=== PATIENT | female | born 1995 | race Caucasian/White ===

== ENCOUNTER 2023-05-24 08:49 | Emergency (ER) | payer OTHER, MEDICAID, SELFPAY ==
[2023-05-24 08:55] VITALS: BP 144/93; PULSE 95; RESP 18; TEMP 37.2; O2SAT 98; BMI 22.3
--- NOTE | 2023-05-24 09:50 | ED.DENTAL ---
HPI - Dental/Oral General Chief complaint: Dental/Oral Stated complaint: R/bottom tooth abcess Time Seen by Provider: 05/24/23 09:21 Source: patient Mode of arrival: Ambulatory History of Present Illness HPI Narrative: Patient is a healthy 28-year-old female who presents today with dental pain. She reports that she has a fracture to down to the gum line it has been there for few months not been causing problems and new usually pain is controlled with Tylenol ibuprofen. She is trying to get into a dentist she her baby and are living at [facility]. She is been taking ibuprofen they called an emergency dental place who recommended she get antibiotics before they see her. She denies any fever chills or swelling of face. Related Data Previous Rx's Medication Instructions Recorded clindamycin HCl 300 mg capsule 300 mg PO TID #21 caps 05/24/23 Allergies Allergy/AdvReac Type Severity Reaction Status Date / Time amoxicillin [From Augmentin] Allergy Verified 05/24/23 08:55 clavulanic acid Allergy Verified 05/24/23 08:55 [From Augmentin] Penicillins Allergy Verified 05/24/23 08:55 Review of Systems Review of Systems ROS Unobtainable: All systems reviewed & are unremarkable except as noted in HPI and below Patient History Social History Smoking Status: Current every day smoker Smoking Status: Current every day smoker tobacco type: vaping alcohol intake frequency: other Substance Use Type: marijuana Exam Initial Vital Signs Initial Vital Signs: Vital Signs Temperature 98.9 F 05/24/23 08:55 Pulse Rate 95 H 05/24/23 08:55 Respiratory Rate 18 05/24/23 08:55 Blood Pressure 144/93 H 05/24/23 08:55 Pulse Oximetry 98 05/24/23 08:55 Oxygen Delivery Method Room Air 05/24/23 08:55 GENERAL: Well-appearing 28-year-old female MOUTH: No facial swelling no dental abscess missing tooth HEENT: Head atraumatic,EOMI, pupils reactive, face symmetric, [moist] mucous membranes CARDIOVASCULAR: Peripheral pulses intact RESPIRATORY: No respiratory distress ABDOMEN: Soft, nontender. Normoactive bowel sounds all 4 quadrants. No guarding or rebound. EXTREMITIES: Normal range of motion, no clubbing or edema. Neurovascularly intact NEUROLOGICAL: Alert and oriented x4. SKIN: Warm, dry, no laceration, no petechiae, no rashes or lesions. HENMT Adult Head Mouth w/Numbe Teeth: 1. Missing tooth no dental abscess no facial swelling no erythema Course Orders Ordered: ED Orders 05/24/23 09:01 Consult to APPEALS SPECIALIST - [employer] Stat Vital Signs Vital signs: Vital Signs - 8 hr 05/24/23 08:55 Temperature 98.9 F Pulse Rate 95 H Respiratory Rate 18 Blood Pressure 144/93 H Pulse Oximetry 98 Oxygen Delivery Method Room Air MDM - Dental/Oral MDM Narrative Medical decision making narrative: Patient well-appearing 28-year-old female presents today with dental pain. There is no abscess facial swelling or evidence of sepsis. She is allergic to penicillin. He is homeless but now in nursing home. Discharge Plan Departure Patient Disposition: Home Clinical Impression: Toothache Instructions: Tooth Fracture Activity Restrictions/Additional Instructions: *You have been diagnosed with tooth pain *What to do: At this time please follow-up with PCP and dentist. *Continue to take medications as directed Ibuprofen 600 mg every 6 hours if needed for divr-po-bjibxrxu pain Clindamycin 300 mg 3 times daily for 1 week--> SENT TO [facility] *Follow up with your primary care provider in 2-3 days or call [phone] *Return to ER if you should have increasing facial pain swelling fever redness or any new, worsening or concerning symptoms Prescriptions: New clindamycin HCl 300 mg capsule 300 mg PO TID Qty: 21 0RF Referrals: Miscellaneous,DoctorMD [Primary Care Provider] - Stand Alone Forms: Patient Portal/API
== END 2023-05-24 10:34 | disposition home or self-care (01) ==
PROVIDERS: Emergency Provider Emergency Medicine
DX: K08.89 Other specified disorders of teeth and supporting structures (principal)
CPT/HCPCS: 99281; 99282

== ENCOUNTER 2023-06-13 14:16 | Emergency (ER) | payer OTHER, MEDICAID, SELFPAY ==
[2023-06-13 14:33] VITALS: BP 135/89; PULSE 87; RESP 18; TEMP 36.9; O2SAT 100
--- NOTE | 2023-06-13 15:35 | ED.PSYCH ---
HPI - Psych <Gui Willoughby PA-C - Last Filed: 06/13/23 15:59> General Chief Complaint: Psychiatric Symptoms Stated Complaint: depression symptoms Time Seen by Provider: 06/13/23 15:01 Source: patient Mode of arrival: Ambulatory History of Present Illness HPI Narrative: This is a 28-year-old female presents to the emergency department due to difficulty controlling her emotions she states that she is trouble managing her emotions and states ?when I am mad I stay med and when I am sad I stay sad?. Denies SI or HI. Baby is 9-month-old. Patient states she is no thoughts of hurting her baby. Currently staying of the [facility], employed and applying for housing. Does not have a primary care. Patient states that she was diagnosed with depression high school and took antidepressants but has since stopped since she was self medicates with marijuana although she is not currently using marijuana to stay in the snf. . Related Data Previous Rx's Medication Instructions Recorded clindamycin HCl 300 mg capsule 300 mg PO TID #21 caps 05/24/23 Allergies Allergy/AdvReac Type Severity Reaction Status Date / Time amoxicillin [From Augmentin] Allergy Verified 05/24/23 08:55 clavulanic acid Allergy Verified 05/24/23 08:55 [From Augmentin] Penicillins Allergy Verified 05/24/23 08:55 Review of Systems <Gui Wliloughby PA-C - Last Filed: 06/13/23 15:59> Review of Systems Narrative: GENERAL: Denies chills, fatigue, malaise, fever, sweats. HEENT: Denies sinus pain, ear pain, sore throat, difficulty swallowing, dizziness. RESPIRATORY: Denies dyspnea, cough, wheezing, hemoptysis, sputum. CARDIOVASCULAR: Denies chest pain, palpitations, orthopnea, edema, GASTROINTESTINAL: Denies nausea, vomiting, abdominal pain, diarrhea, constipation, melena. : Denies dysuria, frequency, incontinence, hematuria, urinary retention. MUSCULOSKELETAL: denies weakness, joint pain, or bony pain SKIN: Denies rash, skin lesions, or other NEUROLOGIC: Denies weakness, headache, numbness, change in speech, confusion, seizures, incoordination. PSYCHIATRIC: Reports increased anxiety as well as difficulty controlling her emotions 12 point review of systems is negative except for those stated above Patient History <Gui Willoughby PA-C - Last Filed: 06/13/23 15:59> Social History Smoking Status: Current every day smoker Smoking Status: Current every day smoker tobacco type: vaping alcohol intake frequency: other Substance Use Type: does not use Exam <Gui Willoughby PA-C - Last Filed: 06/13/23 15:59> Narrative Exam Narrative: GENERAL: Well-developed patient, tearful HEAD: Atraumatic. Normocephalic. EYES: Pupils equal round and reactive. Extraocular motions intact. No scleral icterus. No injection or drainage. ENT: Nose without bleeding, purulent drainage. Throat without erythema, tonsillar hypertrophy or exudate. Airway patent. NECK: Trachea midline. Non tender CARDIOVASCULAR: Regular rate and rhythm without murmurs, gallops, or rubs. RESPIRATORY: Clear to auscultation. Breath sounds equal bilaterally. No wheezes, rales, or rhonchi. GASTROINTESTINAL: Abdomen soft, non-tender, nondistended. EXTREMITIES: No edema or joint tenderness. BACK: Nontender without deformity or crepitance. No flank tenderness. NEURO: AOx3. SKIN: No rash or erythema of visible areas Initial Vital Signs Initial Vital Signs: Vital Signs Temperature 98.5 F 06/13/23 14:33 Pulse Rate 87 06/13/23 14:33 Respiratory Rate 18 06/13/23 14:33 Blood Pressure 135/89 06/13/23 14:33 Pulse Oximetry 100 06/13/23 14:33 Oxygen Delivery Method Room Air 06/13/23 14:33 <Lety Thomson DO - Last Filed: 06/14/23 07:59> Initial Vital Signs Initial Vital Signs: Vital Signs Temperature 98.5 F 06/13/23 14:33 Pulse Rate 87 06/13/23 14:33 Respiratory Rate 18 06/13/23 14:33 Blood Pressure 135/89 06/13/23 14:33 Pulse Oximetry 100 06/13/23 14:33 Oxygen Delivery Method Room Air 06/13/23 14:33 Course <Gui Willoughby PA-C - Last Filed: 06/13/23 15:59> Orders Ordered: ED Orders 06/13/23 14:42 Consult to CAR SEALER - [employer]ing Teacher Stat Vital Signs Vital signs: Vital Signs - 8 hr 06/13/23 14:33 Temperature 98.5 F Pulse Rate 87 Respiratory Rate 18 Blood Pressure 135/89 Pulse Oximetry 100 Oxygen Delivery Method Room Air <Lety Thomson DO - Last Filed: 06/14/23 07:59> Orders Ordered: ED Orders 06/13/23 14:42 Consult to CAR SEALER - Barbering Teacher Stat Vital Signs Vital signs: Vital Signs - 8 hr 06/13/23 14:33 Temperature 98.5 F Pulse Rate 87 Respiratory Rate 18 Blood Pressure 135/89 Pulse Oximetry 100 Oxygen Delivery Method Room Air MDM - Psych <Gui Willoughby PA-C - Last Filed: 06/13/23 15:59> MDM Narrative Medical decision making narrative: MDM * differential diagnosis includes but not limited to depression, anxiety, depression, bipolar or, schizophrenia * Prior records reviewed: Patient has not been here to the emergency department in the past * My lab interpretation: None obtained * My imgaing interpretation: None obtained * Clinical Decision Rules/Scores evaluated: None * Independent discussions with: None ED Course: This is a 28-year-old female presents to the emergency department for evaluation after her therapist said that she may have depression. Patient does not have any SI, HI or any thoughts of hurting her baby 9-month-old. Patient is working to establish with a mental health professional on her own but has yet to make an appointment. Resources were given to her to establish with mental health resources here in [place]. A social work consult was also placed for follow-up tomorrow when the oncology social worker is in the emergency department. Patient is not describing symptoms consistent with schizophrenia or bipolar. Patient was agreeable with this plan. Shared Decision Making: Discussed plan with patient who is comfortable with the plan Social Considerations: None Disposition: Discharged to home Discharge Plan Departure Patient Disposition: Home Clinical Impression: Anxiety Activity Restrictions/Additional Instructions: Thank you for coming to the [facility] Emergency Department today. Thank you for coming in. I believe that the mental health specialist that we discussed with the best possible people to talk to regarding her symptoms. Please call the person you were planning on calling to schedule an appointment. Our oncology social worker will also follow up with the tomorrow to help guide you for further resources. I am glad you are not having any suicidal or homicidal ideations or any thoughts of hurting the baby. Please return directly to the emergency department if you begins to develop any of these feelings. I hope you feel better soon. Please follow up with your primary care provider within a week if your symptoms continue. If you do not have a primary care provider please contact the [facility] Resource line at [phone]. They will ask some questions about your medical history and help you get set up with a provider in the community. Prescriptions: No Action clindamycin HCl 300 mg capsule 300 mg PO TID Qty: 21 0RF Referrals: Miscellaneous,Doctor, [Primary Care Provider] - Stand Alone Forms: Patient Portal/API <Lety Thomson DO - Last Filed: 06/14/23 07:59> Cosign ED Attending Delfina Attestation: I was immediately available in the department for consultation. Documentation has been reviewed.
[2023-06-13 16:06] VITALS: BP 120/79; PULSE 84; RESP 18; O2SAT 100
== END 2023-06-13 16:07 | disposition home or self-care (01) ==
PROVIDERS: Emergency Provider Physician Assistant Medical
DX: F41.9 Anxiety disorder, unspecified (principal)
CPT/HCPCS: 99283

== ENCOUNTER → 2023-12-20 10:47 | Outpatient (CLI) | payer OTHER, MEDICAID, SELFPAY ==
[2023-12-24 04:01] LABS: Chlamydia trachomatis Negative (Negative); Mycoplasma genitalium Negative (Negative); Neisseria gonorrhoeae Negative (Negative)
== END ==
PROVIDERS: PCP Family Medicine; Visit Provider Family Medicine
DX: N89.8 Other specified noninflammatory disorders of vagina (principal)
CPT/HCPCS: 87491; 87563; 87591